=== PATIENT | female | born 1950 | race Caucasian/White ===

== ENCOUNTER 2025-06-07 09:50 | Inpatient (IN) | payer MEDICARE, MEDICAID, OTHER ==
[~2025-06-07] VITALS: Ht 160 cm; Wt 63.5 kg
[2025-06-07 10:42] LABS: PLATELET COUNT (AUTO) 93 K/uL (179-408); RED BLOOD CELL COUNT(AUTO) 4.60 MIL/uL (3.63-4.92); RED CELL DISTRIBUTION WIDTH 14.2 % (12.3-17.7); WHITE BLOOD COUNT (AUTO) 3.7 K/uL (3.8-11.8)
[2025-06-07 10:53] LABS: CREATININE 0.5 mg/dL (0.6-1.3); SODIUM SERUM 141 mmol/L (136-145); UREA NITROGEN, BLOOD 16 mg/dL (7-18)
[2025-06-07] MEDS ORDERED: MAG30ORA PO (10:58)
[2025-06-07] MEDS ORDERED: LEVE100S PO (10:58)
[2025-06-07] MEDS ORDERED: ASPI81TA31 PO (10:58)
[2025-06-07] MEDS ORDERED: ATIVAN (10:58)
[2025-06-07] MEDS ORDERED: BISA10SU61 RC (10:58)
[2025-06-07] MEDS ORDERED: DOCU-141 PO (10:58)
[2025-06-07] MEDS ORDERED: CRAN500T3 PO (10:58)
[2025-06-07] MEDS ORDERED: MULT-594 PO (10:58)
[2025-06-07] MEDS ORDERED: ACET-3117 PO (10:58)
[2025-06-07] MEDS ORDERED: DIVA125C5 PO (10:58)
[2025-06-07] MEDS ORDERED: BROM5DRO3 EACHEYE (10:58)
[2025-06-07] MEDS ORDERED: POLY15DR31 EACHEYE (10:58)
[2025-06-07] MEDS ORDERED: ATEN50TA PO (10:58)
[2025-06-07] MEDS ORDERED: LIDO28CR2 TP (10:58)
[2025-06-07] MEDS ORDERED: NA P133E RC (10:58)
[2025-06-07] MEDS ORDERED: MAGN400O6 PO (10:58)
[2025-06-07] MEDS ORDERED: LIDO30AD10 TP (10:58)
[2025-06-07] MEDS ORDERED: FOLI1TAB27 PO (10:58)
[2025-06-07 10:59] LABS: ASPARTATE AMINOTRANSFERASE 52 U/L (15-37); TOTAL PROTEIN, SERUM 7.7 g/dL (6.4-8.2)
[2025-06-07] MEDS ORDERED: MAGNESIUM HYDROXIDE 30 ML LIQUID UDC PO PRN ×2 (13:45→17:15)
[2025-06-07] MEDS ORDERED: REMEDY ESSENTIAL ZINC PASTE 113 GM TP PRN (13:45)
[2025-06-07] MEDS ORDERED: ONDANSETRON 4 MG/2 ML VIAL IV PRN (13:45)
[2025-06-07] MEDS ORDERED: ASCO500T10 PO (14:06)
[2025-06-07 14:45] VITALS: BP 115/50; TEMP 97.8; O2SAT 99
[2025-06-07] MEDS ORDERED: FLEET ENEMA 133 ML BOTTLE RC PRN (17:15)
[2025-06-07] MEDS ORDERED: ATIVAN 1 MG INJ PRN (17:15)
[2025-06-07] MEDS ORDERED: MAG HYDROX/AL HYDROX/SIMETH 30 ML LIQUID UDC PO PRN (17:15)
[2025-06-07] MEDS ORDERED: LORAZEPAM 2 MG/1 ML VIAL IV PRN (17:45)
[2025-06-07 18:15] VITALS: BP 128/61; TEMP 97.6; O2SAT 94
[2025-06-07] MEDS: ACETAMINOPHEN 325 MG TABLET PO PRN (18:27)
[2025-06-07] MEDS: DIVALPROEX SPRINKLE 125 MG CAP.SPRINK PO SCH (21:58)
[2025-06-07] MEDS: ZOLPIDEM 5 MG TABLET PO PRN (23:38)
[2025-06-08] MEDS ORDERED: BISACODYL 10 MG SUPP.RECT RC PRN (09:00)
[2025-06-08] MEDS ORDERED: Medication Not On Formulary EA (Multivitamins (Multivitamin) 1 TAB) PO SCH (09:00)
[2025-06-08] MEDS: ASPIRIN 81 MG TAB.CHEW PO SCH (09:16)
[2025-06-08] MEDS: MULTIVITAMINS,THERAPEUTIC TABLET PO SCH (09:18)
[2025-06-08] MEDS: ACETAMINOPHEN/CODEINE 300-30 MG TABLET PO PRN (09:18)
[2025-06-08] MEDS: ASCORBIC ACID 500 MG TABLET PO SCH (09:18)
[2025-06-08] MEDS: ATENOLOL 50 MG TABLET PO SCH (09:20)
[2025-06-08] MEDS: DOCUSATE SODIUM 100 MG CAPSULE PO SCH (09:20)
[2025-06-08] MEDS: FOLIC ACID 1 MG TABLET PO SCH (09:20)
[2025-06-08] MEDS: LIDOCAINE 5% PATCH TD SCH (09:20)
[2025-06-08] MEDS ORDERED: ONDANSETRON 4 MG/2 ML VIAL ONE (10:00)
[2025-06-08] MEDS ORDERED: ETOMIDATE 20 MG/10 ML VIAL ONE (10:00)
[2025-06-08] MEDS ORDERED: PROPOFOL 200 MG/20 ML BOTTLE ONE (10:00)
[2025-06-08] MEDS ORDERED: CEFAZOLIN 1 G VIAL ONE ×2 (10:00)
[2025-06-08 12:04] VITALS: BP 102/30; TEMP 97.7; O2SAT 97
[2025-06-08] MEDS ORDERED: LORAZEPAM 2 MG/1 ML VIAL IV PRN (15:27)
[2025-06-08 15:53] VITALS: BP 109/43; TEMP 97.7; O2SAT 98
[2025-06-08 19:50] VITALS: BP 108/40; TEMP 98.1; O2SAT 97
[2025-06-09 05:09] VITALS: BP 122/45; TEMP 97.5; O2SAT 95
[2025-06-09 06:40] LABS: PLATELET COUNT (AUTO) 82 K/uL (179-408); RED BLOOD CELL COUNT(AUTO) 4.48 MIL/uL (3.63-4.92); RED CELL DISTRIBUTION WIDTH 14.9 % (12.3-17.7); WHITE BLOOD COUNT (AUTO) 2.9 K/uL (3.8-11.8)
[2025-06-09 06:50] LABS: CREATININE 0.6 mg/dL (0.6-1.3); SODIUM SERUM 141 mmol/L (136-145); UREA NITROGEN, BLOOD 12 mg/dL (7-18)
[2025-06-09] MEDS ORDERED: BUPIVACAINE/EPI PF 0.5% 10 ML VIAL ONE (08:44)
[2025-06-09] MEDS ORDERED: LIDOCAINE HCL 1% 20 ML VIAL ONE (08:45)
[2025-06-09] MEDS ORDERED: FENTANYL CITRATE 250 MCG/5 ML AMPUL ONE (10:29)
[2025-06-09] MEDS ORDERED: LABETALOL HCL 100 MG/20 ML VIAL ONE (10:30)
[2025-06-09 11:24] LABS: BASOPHILS % (MANUAL) 0 % (0-2); EOSINOPHILS % (MANUAL) 2 % (0-8); LYMPHOCYTES % (MANUAL) 28 % (20-40); MONOCYTES % (MANUAL) 9 % (2-10); NEUTROPHILS % (MANUAL) 61 % (42-75); PLATELET ESTIMATE DECREASED
[2025-06-09 12:25] VITALS: BP 112/49
[2025-06-09 13:15] VITALS: BP 137/78; TEMP 98.4; O2SAT 100
[2025-06-09 15:10] VITALS: BP 130/80; TEMP 98.2; O2SAT 100
[2025-06-09] MEDS: MUPIROCIN 2% OINT 22 GM TUBE NS SCH (21:49)
[2025-06-10 07:05] VITALS: BP 110/50; TEMP 98.1; O2SAT 99
[2025-06-10 08:00] VITALS: BP 102/53; TEMP 97.8; O2SAT 96
[2025-06-10 08:20] LABS: PLATELET COUNT (AUTO) 87 K/uL (179-408); RED BLOOD CELL COUNT(AUTO) 4.40 MIL/uL (3.63-4.92); RED CELL DISTRIBUTION WIDTH 14.7 % (12.3-17.7); WHITE BLOOD COUNT (AUTO) 3.3 K/uL (3.8-11.8)
[2025-06-10 08:42] LABS: CREATININE 0.6 mg/dL (0.6-1.3); SODIUM SERUM 142 mmol/L (136-145); UREA NITROGEN, BLOOD 14 mg/dL (7-18)
[2025-06-10 16:47] VITALS: BP 106/42; TEMP 97.7; O2SAT 97
[2025-06-10] MEDS: GABAPENTIN 100 MG CAPSULE PO SCH (21:42)
[2025-06-10 22:59] VITALS: BP 112/59; TEMP 97.3; O2SAT 95
[2025-06-11 07:24] VITALS: BP 101/56; TEMP 97.7; O2SAT 95
[2025-06-11 07:57] LABS: PLATELET COUNT (AUTO) 88 K/uL (179-408); RED BLOOD CELL COUNT(AUTO) 4.54 MIL/uL (3.63-4.92); RED CELL DISTRIBUTION WIDTH 14.5 % (12.3-17.7); WHITE BLOOD COUNT (AUTO) 2.9 K/uL (3.8-11.8)
[2025-06-11 08:00] VITALS: BP 127/57; TEMP 97.9; O2SAT 96
[2025-06-11 09:42] VITALS: BP 127/57
[2025-06-11] MEDS ORDERED: GABA-532 PO (10:11)
[2025-06-11] MEDS ORDERED: MULT-24 PO (10:11)
[2025-06-11] MEDS ORDERED: MUPI22OI2 NS (10:11)
== END 2025-06-11 16:00 | DRG 571 ==
LOC: ER 09:50 → MEDSURG3 12:22 → MEDSURG1 06-09 20:42
PROVIDERS: ADMIT Nurse Practitioner Family; ATTEND Nurse Practitioner Family
PROC: 0JBH0ZZ Excision of Left Lower Arm Subcutaneous Tissue and Fascia, Open Approach (ICD-10-PCS; principal; 2025-06-09 10:30)
DX: C44.629 Squamous cell carcinoma of skin of left upper limb, including shoulder (principal); E44.1 Mild protein-calorie malnutrition; F03.93 Unspecified dementia, unspecified severity, with mood disturbance; Z22.322 Carrier or suspected carrier of Methicillin resistant Staphylococcus aureus; D64.9 Anemia, unspecified; E88.09 Other disorders of plasma-protein metabolism, not elsewhere classified; G40.909 Epilepsy, unspecified, not intractable, without status epilepticus; I10 Essential (primary) hypertension; Z79.82 Long term (current) use of aspirin; Z86.73 Personal history of transient ischemic attack (TIA), and cerebral infarction without residual deficits; Z88.0 Allergy status to penicillin; Z20.822 Contact with and (suspected) exposure to COVID-19; F39 Unspecified mood [affective] disorder; R73.9 Hyperglycemia, unspecified; R26.81 Unsteadiness on feet; R74.01 Elevation of levels of liver transaminase levels; Z68.24 Body mass index [BMI] 24.0-24.9, adult
CPT/HCPCS: 36415; 70030-TC; 71045; 84484; 85025; 85730; 86850; 86870; 86900; 86901; 88341; 88342; A4649; A4663; G0378; J0690; J2405; J3010; J3490